=== PATIENT | female | born 1975 | race Caucasian/White ===

== ENCOUNTER 2018-12-22 20:04 | Emergency (ER) | payer SELFPAY ==
[~2018-12-22] VITALS: Ht 165.1 cm; Wt 106.1 kg
[2018-12-22] MEDS ORDERED: HYDROcodone/APAP 5 MG/325 MG (LORTAB) TAB PO ONE (21:00)
--- NOTE | 2018-12-22 21:14 | Diagnostic Imaging Report ---
Clinical indication: Patient smashed thumb. Exam: X-ray of the left first finger, 3 views. Comparison: None. Findings: There is no acute fracture or dislocation. There is no significant bone or joint abnormality. Bony ossicles are seen adjacent to the first IP joint and first MCP joint. The remainder of the visualized portion of the left hand is unremarkable. Impression: There is no acute fracture or dislocation. Dictated by: Dictated on workstation # [id number]
--- NOTE | 2018-12-22 21:19 | ED Upper Extremity ---
General Chief Complaint: Upper Extremity Stated Complaint: L THUMB PAIN Nursing Triage Note: patient smashed thumb in door, state pain with movement. pt verbalized "worse pain ever" Nursing Sepsis Screen: No Definite Risk Source: patient Exam Limitations: no limitations History of Present Illness Date Seen by Provider: December 22, 2018 Time Seen by Provider: 20:15 Allergies and Home Medications Allergies Coded Allergies: No Known Drug Allergies (Unverified , 12/22/18) Past Kswjajp-Ahbxnh-Xhpblo Hx Patient Social History Recent Foreign Travel: No Contact w/Someone Who Travel: No Recent Infectious Disease Expo: No Physical Exam Vital Signs Vital Signs - First Documented 12/22/18 20:43 Temp 98.0 Pulse 73 Resp 18 B/P (MAP) 141/83 (102) Pulse Ox 99 O2 Delivery Room Air Capillary Refill : Less Than 3 Seconds Height, Weight, BMI Height: 5'5.00" Weight: 234lbs. oz. 106.489687gt; BMI Method:Estimated Progress/Results/Core Measures Results/Orders My Orders Orders - FELICIA DE JESUS Finger(S) (12/22/18 20:15) Hydrocodone/Apap 5/325 Tablet (Lortab 5 (12/22/18 21:00) Rx-Hydrocodone/Apap 5-325 Mg (Rx-Vicodin (12/22/18 21:30) Medications Given in ED Current Medications Medications Dose Ordered Sig/[place] Route Start Time Stop Time Status Last Admin Dose Admin Acetaminophen/ Hydrocodone Bitart 1 tab ONCE ONCE PO 12/22/18 21:00 12/22/18 21:01 DC 12/22/18 21:05 1 TAB Vital Signs/I&O 12/22/18 20:43 Temp 98.0 Pulse 73 Resp 18 B/P (MAP) 141/83 (102) Pulse Ox 99 O2 Delivery Room Air Blood Pressure Mean: 102 Progress Progress Note : Time: 21:27 Progress Note I have seen and evaluated the patient. I have informed her of her imaging studies. She was given the option of a nail trepanation and she informs me that she has waited entirely too long in the emergency room and would like to leave. Discharge paperwork was provided. She agrees with plan of care, plans for discharge, return precautions were given. Departure Impression Primary Impression: Fingertip contusion Disposition: HOME, SELF-CARE Condition: Stable/Unchanged Departure-Patient Inst. Decision time for Depature: 21:19 Referrals: NO,LOCAL PHYSICIAN (PCP/Family) Primary Care Physician Patient Instructions: Contusion (DC) Add. Discharge Instructions: Ice to the sore areas at 20 minute intervals. Take medication as directed for pain. You may use Tylenol and ibuprofen in addition to your hydrocodone. Follow- up with your primary care provider within the next week if no improvement. Return back to the emergency room for worsening symptoms or concerns as needed. All discharge instructions reviewed with patient and/or family. Voiced understanding. FELICIA DE JESUS December 22, 2018 21:19
[2018-12-22 21:27] VITALS: BP 141/83
[2018-12-22] MEDS ORDERED: RX-HYDROCODONE/APAP 5/325 MG #4 TAB PK PO PRN (21:30)
== END 2018-12-22 21:27 | disposition home or self-care (01) ==
LOC: EDUNIT# 20:04 → ER 20:05
DX: S60.012A Contusion of left thumb without damage to nail, initial encounter (principal); W23.0XXA Caught, crushed, jammed, or pinched between moving objects, initial encounter
CPT/HCPCS: 73140